=== PATIENT | male | born 1975 | race Two or more races ===

== ENCOUNTER → 2020-11-07 | Outpatient (CLI) | payer MEDICAID ==
[2020-11-07 08:39] LABS: Urine WBC None Seen /hpf (0 - 3)
[2020-11-07 08:49] LABS: Basophils # (auto) 0.1 10 ^3/uL (0-0.2); Basophils % (auto) 0.7 % (0.0-2.0); Eosinophils # (auto) 0.1 10 ^3/uL (0-0.8); Eosinophils % (auto) 1.7 % (0.0-7.0); Hematocrit 49.6 % (41.0-53.0); Lymphocytes # (auto) 2.4 10 ^3/uL (0.4-5.4); Lymphocytes % (auto) 29.9 % (10.0-50.0); Mean Corpuscular Hemoglobin 29.9 pg (28.0-32.0); Mean Corpuscular Hgb Conc. 34.3 g/dL (32.0-36.0); Mean Corpuscular Volume 87.2 fL (80.0-100.0); Monocytes # (auto) 0.5 10 ^3/uL (0-1.3); Monocytes % (auto) 6.3 % (0.0-12.0); Neutrophils # (auto) 4.8 10 ^3/uL (1.6-8.6); Neutrophils % (auto) 61.4 % (37.0-80.0); Nucleated Red Blood Cells % 0.1 %; Platelet Count (auto) 183 10^3/uL (140-450); Red Blood Cells 5.69 10^6/uL (4.5-5.90); Red Cell Distribution Width 14.1 % (11.8-14.3); White Blood Cell 7.9 10^3/uL (4.4-10.8)
[2020-11-07 08:56] LABS: Urine Bacteria NONE SEEN /hpf (None Seen); Urine Blood Negative /uL (Negative); Urine Specific Gravity 1.012 (1.001-1.035)
[2020-11-07 09:16] LABS: Potassium 4.4 mmol/L (3.5-5.1)
[2020-11-07 09:27] LABS: Albumin 3.6 g/dL (3.4-5.0); BUN/Creatinine Ratio 11.3; Bilirubin, Total 0.8 mg/dL (0.2-1.0); CRP High Sensitivity 0.15 mg/dL (< 0.3); Total Protein 6.9 g/dL (6.4-8.2)
== END | disposition home or self-care (01) ==
LOC: LAB 08:16
PROVIDERS: ATTEND Internal Medicine
DX: N40.0 Benign prostatic hyperplasia without lower urinary tract symptoms (principal); M06.9 Rheumatoid arthritis, unspecified; Z85.528 Personal history of other malignant neoplasm of kidney
CPT/HCPCS: 36415; 80053; 80061; 81001; 83036; 84153; 85025; 85652; 86141

== ENCOUNTER → 2021-03-25 | Outpatient (CLI) | payer MEDICAID ==
[2021-03-25 13:14] LABS: Cholesterol 204 mg/dL (< 200); Triglycerides 114 mg/dL (< 150)
[2021-03-25 13:16] LABS: HDL Cholesterol 47 mg/dL (40-59); LDL Cholesterol 138 mg/dL (< 100)
== END | disposition home or self-care (01) ==
LOC: LAB 11:59
PROVIDERS: ATTEND Internal Medicine
DX: E78.5 Hyperlipidemia, unspecified (principal); D35.00 Benign neoplasm of unspecified adrenal gland
CPT/HCPCS: 36415; 80061; 84403; 84443; 86225; 86235

== ENCOUNTER → 2021-03-30 | Outpatient (CLI) | payer MEDICAID | END | disposition home or self-care (01) | LOC: LAB 07:37 | PROVIDERS: ATTEND Internal Medicine | DX: E78.5 Hyperlipidemia, unspecified (principal) | CPT/HCPCS: 82533 ==